=== PATIENT | male | born 1950 | race Caucasian/White ===

== ENCOUNTER → 2022-08-28 | Outpatient (CLI) | payer OTHER ==
[~2022-08-28] MED LIST: CARDIZEM CD180 MG PO; HYZAAR 100-121 UDTAB PO; LASIX20 MG PO; LIPITOR20 MG PO; NEURIN; PRILOSEC20 MG PO; RELAFEN500 MG PO; ULTRAM50 MG PO
== END | disposition home or self-care (01) ==
LOC: NUCLEAR 07:00
PROVIDERS: ATTEND Specialist
DX: I11.9 Hypertensive heart disease without heart failure (principal); J44.9 Chronic obstructive pulmonary disease, unspecified; E11.9 Type 2 diabetes mellitus without complications; I49.9 Cardiac arrhythmia, unspecified
CPT/HCPCS: 78452; 93017; 93306; A9500

== ENCOUNTER 2024-01-30 10:03 | Outpatient (CLI) | payer OTHER | END 2024-01-30 10:04 | disposition home or self-care (01) | LOC: NUCLEAR 10:03 | PROVIDERS: ATTEND Internal Medicine | DX: I10 Essential (primary) hypertension (principal); I50.30 Unspecified diastolic (congestive) heart failure | CPT/HCPCS: 78469; A9538 ==

== ENCOUNTER → 2024-07-06 | Emergency (ER) | payer OTHER ==
[~2024-07-06] VITALS: Ht 182.9 cm; Wt 92.5 kg
[~2024-07-06] MED LIST changes: +ATIVAN0.5 M1; +CARDURA1 MG PO; +CEFTRIAXONE SODIUM 1,000 MG VIAL IV STA; +CEFTRIAXONE SODIUM 1,000 MG VIAL ONE; +COZAAR50 MG; +CRESTOR40 MG; +ELIQUIS5 MG; +IMODIUM A-D2 M2; +ISOSORBIDE MONO60 MG PO; +KAPSPARGO SPRIN50 MG; +KETOROLAC TROMETHAMINE 15 MG VIAL IV STA; +KETOROLAC TROMETHAMINE 30 MG VIAL ONE; +LAMOTRIGINE25 MG; +LASIX40 MG; +MONTELUKAST SODI4 M1; +NEURONTIN800 MG; +NORVASC5 MG; +PRILOSEC OTC20 MG; +PROZAC20 MG; +RESTORIL30 MG; +SEROQUEL25 MG; +SYNJARDY 5-5001 EACH
[2024-07-06 11:24] LABS: HEMATOCRIT 46.2 % (39.0-48.0); HEMOGLOBIN 15.7 g/dL (13-16.00); MEAN CELL VOLUME 95.4 fL (80.0-100.00); MEAN CORPUSCULAR HEMOGLOBIN 32.5 pg (27.00-32.0); PLATELET COUNT 132 K/uL (150-450); RED BLOOD COUNT 4.84 M/uL (4.00-6.00); RED CELL DISTRIBUTION WIDTH 14.4 % (11.5-14.5)
[2024-07-06 12:11] LABS: CALCIUM 8.9 mg/dL (8.5-10.1); CREATININE SERUM 0.9 mg/dL (0.70-1.30); GFR 82.04; POTASSIUM 3.96 mEq/L (3.5-5.1)
== END | disposition left against medical advice (07) ==
LOC: ER 09:40
PROVIDERS: General Practice
DX: L02.01 Cutaneous abscess of face (principal); Z88.8 Allergy status to other drugs, medicaments and biological substances
CPT/HCPCS: 36415; 96365; 99282; J0696; J1885